=== PATIENT | female | born 1950 | race Caucasian/White ===

== ENCOUNTER → 2017-02-05 | Outpatient (CLI) | payer BC ==
--- NOTE | 2017-02-05 09:19 | MRI ---
Procedure: MR BRAIN WITHOUT IV CONTRAST Exam Date: 02/05/2017 8:16 AM CDT Ordering Provider: PATRIZIA ABEL Clinical Indication: HEADACHES Comparison: None Technique: Multiplanar MRI of the brain was obtained without the administration of IV contrast. Findings: Ventricular size and configuration are normal. There is no midline shift or hydrocephalus. There is normal signal within the cortical monreal matter, subcortical white matter, and periventricular white matter. There is normal signal within the deep monreal matter nuclei. There is normal signal within the cerebellum. There is normal signal within the brainstem There is no evidence of an acute infarct. There is no parenchymal hemorrhage. The pituitary gland is normal in size. There are no pineal masses. There are normal intracranial vascular flow voids. The foramen magnum is normal. There is normal signal within the paranasal sinuses. The orbits are intact. IMPRESSION: 1. Unremarkable MRI of the brain without the administration of IV contrast. Electronically signed by: Tamir San MD 02/05/2017 9:18 AM CDT
--- NOTE | 2017-02-05 09:19 | MRI ---
Study: MRA of the brain. Indication: Cerebral aneurysm Technique: Non contrast [id number] MRA images of the brain were obtained. 3D MIP reformats of the intracranial arterial vasculature performed. Comparison: None. Findings: No hemodynamically significant stenosis, branch occlusion, or aneurysm of the anterior or posterior intracranial arterial circulation identified. Impression: No MRA evidence of hemodynamically significant stenosis, branch occlusion, or aneurysm of the intracranial arterial circulation. Electronically signed by: Joshua Unger MD 02/05/2017 9:18 AM CDT
== END | disposition home or self-care (01) ==
LOC: MRI 07:58
PROVIDERS: ATTEND Specialist
DX: G44.52 New daily persistent headache (NDPH) (principal); I67.1 Cerebral aneurysm, nonruptured

== ENCOUNTER → 2017-02-18 | Outpatient (CLI) | payer BC ==
--- NOTE | 2017-02-18 10:19 | RAD ---
EXAM DESCRIPTION: Hand,Left 3 Views CLINICAL HISTORY: PAIN FINDINGS/ IMPRESSION: Osteoarthritis distal interphalangeal joint index finger with prominent osteophytes. Tiny distal interphalangeal joint osteophytes middle finger No advanced osteoarthritis. No inflammatory arthritis No fracture or focal osteochondral lesion Electronically signed by: Shabbir Padron MD 02/18/2017 10:18 AM CDT
--- NOTE | 2017-02-18 10:40 | RAD ---
EXAM DESCRIPTION: Hand,Right 3 Views CLINICAL HISTORY: 66 years,Female,PAIN COMPARISON: None FINDINGS: The right hand demonstrates no evidence of fractures or acute abnormalities. Soft tissues appear unremarkable. Joint space is unremarkable IMPRESSION: Unremarkable hand Electronically signed by: Subhash Suarez MD 02/18/2017 10:39 AM CDT
== END | disposition home or self-care (01) ==
LOC: RAD 09:05
PROVIDERS: ATTEND Orthopaedic Surgery
DX: M79.642 Pain in left hand (principal)

== ENCOUNTER → 2017-03-22 | Outpatient (CLI) | payer BC ==
--- NOTE | 2017-03-24 01:16 | MRI ---
Procedure: MR CERVICAL SPINE WITHOUT IV CONTRAST Exam Date: 03/22/2017 Ordering Provider: MIYA PA Clinical Indication: CERVICAL DISC DISORDER Comparison: None Technique: Multiplanar MRI of the cervical spine was obtained without the administration of intravenous contrast. Findings: Height of the intervertebral disks and vertebral bodies are preserved. There is no signal abnormality to suggest a fracture or metastatic disease. At the C1-2 level, there is no disc herniation, spinal stenosis, or neural foraminal narrowing. At the C2-3 level, there is no disc herniation, spinal stenosis, or neural foraminal narrowing. At the C3-4 level, disc osteophyte complex. No significant central spinal stenosis. There is mild right and no significant left neural foraminal narrowing. At the C4-5 level, there is no disc herniation, spinal stenosis, or neural foraminal narrowing. At the C5-6 level, tiny disc osteophyte complex without significant central spinal stenosis or neural foraminal narrowing. At the C6-7 level, there is no disc herniation, spinal stenosis, or neural foraminal narrowing. At the C7-T1 level, there is no disc herniation, spinal stenosis, or neural foraminal narrowing. The cervical and proximal thoracic spinal cord are of normal signal and contour. The prevertebral signal is normal. There is no paraspinal mass. Impression: 1. There is no significant central spinal stenosis in the cervical spine. 2. Mild multilevel degenerative disc disease. 3. Mild neural foraminal narrowing on the right at C3-C4. Electronically signed by: River Borrego MD 03/24/2017 1:15 AM CDT
== END | disposition home or self-care (01) ==
LOC: MRI 12:35
PROVIDERS: ATTEND Psychiatry & Neurology Neurology
DX: G56.01 Carpal tunnel syndrome, right upper limb (principal); G56.02 Carpal tunnel syndrome, left upper limb; M51.16 Intervertebral disc disorders with radiculopathy, lumbar region

== ENCOUNTER → 2017-04-15 | Outpatient (CLI) | payer BC | END | disposition home or self-care (01) | LOC: LAB.O 09:13 → EDSTATUS 13:30 | PROVIDERS: ATTEND Orthopaedic Surgery | DX: Z01.818 Encounter for other preprocedural examination (principal) ==

== ENCOUNTER 2017-04-30 05:53 | Day surgery (SDC) | payer BC ==
--- NOTE | 2017-04-29 13:21 | HP ---
CHIEF COMPLAINT: Right hand numbness. HISTORY OF PRESENT ILLNESS: Ms. Edwards has a history of numbness in the right hand that has been going on for quite sometime. She has attempted conservative measures. She has failed to gain relief with conservative measures and, as such , as requested operative intervention. Both her clinical and her EMG findings confirm carpal tunnel syndrome. Because of her ongoing failure, she would like to proceed with carpal tunnel release. PAST SURGICAL HISTORY: 1. Hysterectomy. 2. Cholecystectomy. MEDICATIONS: 1. Losartan. 2. Tramadol. 3. Zolpidem. 4. Magnesium. ALLERGIES: NO KNOWN DRUG ALLERGIES. CODE STATUS: DNR. IMMUNIZATIONS: Up to date. SOCIAL HISTORY: The patient does not drink, smoke or use any illicit drugs. FAMILY HISTORY: None pertinent to today's complaint. REVIEW OF SYSTEMS: Negative except as indicated in the History of Present Illness. PHYSICAL EXAMINATION: VITAL SIGNS: Blood pressure 137/86. Pulse 70. Height 5'4". Weight 220. MENTAL STATUS: The patient is awake, alert, and is able to give a good history and participate in the physical. The patient is oriented to person, place and time. SKIN: Normal tone and turgor. MUSCULOSKELETAL: She has positive Tinel's and positive Phalen's. She has very minor thenar atrophy. 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 She does have slight pain to palpation over the first carpometacarpal joint. She does have positive carpal compression test. The lacks any skin abnormalities. ASSESSMENT: 1. Carpal tunnel syndrome. PLAN: The plan at this point is for carpal tunnel release. We have discussed the risks, benefits, and alternatives to that and the patient has given informed consent. #[id number] [facility]
[~2017-04-30 05:53] MED LIST: LACTATED RINGERS 1,000 ML ONE; SODIUM CHL 0.9% 100ML MINI-BAG 100 ML IVPB ONE; SODIUM CHL 0.9% 50ML MIN-BAG+ 0 ML IVPB ONE; ceFAZolin SODIUM 1 GM VIAL ONE
[2017-04-30] MEDS ORDERED: VANCOMYCIN HCL INJ 1,000 MG VIAL IVPB ONE (07:06)
[2017-04-30] MEDS ORDERED: LIDOCAINE 1% 50 ML VIAL INJ ONE (07:06)
[2017-04-30] MEDS ORDERED: BUPIVACAINE 0.25% INJ 30 ML VIAL INJ ONE (07:06)
[2017-04-30 07:42] VITALS: O2SAT 95
[2017-04-30] MEDS ORDERED: MIDAZOLAM INJ 5 MG/5 ML VIAL ONE (10:16)
[2017-04-30] MEDS ORDERED: fentaNYL CITRATE INJ 50 MCG/ML AMP ONE (10:16)
[2017-04-30] MEDS: ceFAZolin SODIUM 1 GM VIAL ONE ×2 (10:41→10:45)
[2017-04-30] MEDS: VANCOMYCIN HCL INJ 1,000 MG VIAL IVPB ONE ×2 (10:41→10:45)
[2017-04-30] MEDS ORDERED: HYDROcodone 5MG/APAP 325MG 1 EA TAB ONE (11:13)
[2017-04-30] MEDS ORDERED: HYDROcodone 5MG/APAP 325MG 1 EA TAB PO ONE (11:20)
[2017-04-30] MEDS ORDERED: LIDOCAINE 1% 10 ML VIAL INJ ONE (12:00)
[2017-04-30] MEDS ORDERED: PROPOFOL 200 MG/20 ML VIAL IV ONE (12:00)
[2017-04-30 13:43] VITALS: BP 118/61; TEMP 97.8
--- NOTE | 2017-05-01 08:13 | OP ---
DATE OF PROCEDURE: 04/30/17 PREOPERATIVE DIAGNOSIS: 1. Carpal tunnel syndrome. POSTOPERATIVE DIAGNOSIS: 1. Carpal tunnel syndrome. PROCEDURE: 1. Carpal tunnel release. SURGEON: Jatin Marcum MD. NATURALIST: Claudy Alonso CST, SA-C. ANESTHESIA: Local with sedation. COMPLICATIONS: None. FINDINGS: Thickening of the transverse carpal ligament. INDICATION: The patient has a history of both pain and numbness in the distribution of the median nerve. We talked about options for her and she has failed conservative measures. As such, she has requested operative intervention. After discussing the risks, benefits and alternatives to that, the patient has given informed consent for carpal tunnel release. PROCEDURE: The patient was brought to the Operating Room and placed in the supine position. Sedation was administered and local anesthetic was injected into the operative area under sterile conditions. After the injection of anesthetic, the arm was sterilely prepped and draped. A longitudinal incision was made directly overlying the transverse carpal ligament and blunt dissection was carried down to the ligament. The transverse carpal ligament was sharply transected along its length and a [place] elevator was used to ensure complete release of the ligament. Once release had been confirmed, the wound was thoroughly irrigated and the wound was closed with Nylon suture. A sterile dressing was placed and the patient was taken to the Day Surgery Unit. POSTOPERATIVE INSTRUCTIONS: The patient has been encouraged to do range of motion of the digits and will followup with us in two days. #[id number] [facility]
== END 2017-04-30 11:45 | disposition home or self-care (01) ==
LOC: AMB 05:53
PROVIDERS: ATTEND Orthopaedic Surgery
DX: G56.01 Carpal tunnel syndrome, right upper limb (principal); Z79.899 Other long term (current) drug therapy
CPT/HCPCS: 01810; 64721; J0690; J2250; J3010; J3370; J3490; J7050; J7120

== ENCOUNTER → 2017-05-13 | Outpatient (CLI) | payer BC ==
--- NOTE | 2017-05-13 21:10 | MRI ---
EXAM DESCRIPTION: Lumbar Spine w/o Contrast CLINICAL HISTORY: 66 years, Female, LOW BACK PAIN left foot numbness COMPARISON: None. FINDINGS: Sagittal and axial sequences. Bone marrow has normal signal characteristics. Conus terminates at L1. L1 has chronic anterior compression deformity. Anterior height here about 1.4 cm versus about 2.6 cm comparable area of L2. Minimal bulge T12-L1. At L1-2, mild bulging disc and facet degenerative change. At L2-3, mild diffuse bulge with facet degenerative change. Slight left foraminal narrowing Mild bulging disc L3-4. Asymmetric to the right. Right foraminal narrowing and impingement on the exiting right L3 root. Mild facet degenerative change. At L4-5 about 2 mm of retrolisthesis with bulging disc osteophyte asymmetric to the right. Narrowing of the right exit foramen and right lateral recess with facet degenerative change. At L5-S1 bulging disc asymmetric to left. Slight impingement on the left lateral recess and exit foramen. IMPRESSION: 1. Mild retrolisthesis L4-5. Bulging disc osteophyte impingement right exit foramen and lateral recess 2. Bulging disc asymmetric to the right with facet degenerative change. Slight impingement on the exiting right L3 root 3. Mild bulging disc osteophyte asymmetric to left L5-S1. Other mild degenerative changes as discussed. 4. Chronic mild anterior compression L1. Consider bone mineral density test to evaluate for osteopenia if clinically indicated Electronically signed by: Lance Gamez MD 05/13/2017 9:09 PM CDT
== END | disposition home or self-care (01) ==
LOC: MRI 13:42
PROVIDERS: ATTEND Family Medicine
DX: M54.5 Low back pain (principal); M47.896 Other spondylosis, lumbar region

== ENCOUNTER → 2017-07-05 | Outpatient (CLI) | payer BC | END | disposition home or self-care (01) | LOC: LAB.O 08:30 | PROVIDERS: ATTEND Orthopaedic Surgery | DX: Z01.818 Encounter for other preprocedural examination (principal) ==

== ENCOUNTER 2017-07-17 05:41 | Day surgery (SDC) | payer BC ==
--- NOTE | 2017-07-11 08:43 | HP ---
CHIEF COMPLAINT: Left hand numbness. HISTORY OF PRESENT ILLNESS: Anali is a 66-year-old female with a history of numbness in both hands. She has had right carpal tunnel release which has resolved that pain. She now has pain in the left wrist and left hand numbness. She does have signs, symptoms and testing consistent with carpal tunnel syndrome. Because of that, she has requested operative intervention. After discussing the risks, benefits and alternatives to carpal tunnel release, the patient has given informed consent. PAST SURGICAL HISTORY: 1. Hysterectomy. 2. Cholecystectomy. 3. Carpal tunnel release. MEDICATIONS: 1. Losartan. 2. Tramadol. 3. Zolpidem. 4. Magnesium. ALLERGIES: NO KNOWN DRUG ALLERGIES. CODE STATUS: DNR. IMMUNIZATIONS: Up to date. SOCIAL HISTORY: The patient does not drink, smoke or use any illicit drugs. FAMILY HISTORY: None pertinent to today's complaint. REVIEW OF SYSTEMS: Negative except as indicated in the History of Present Illness. PHYSICAL EXAMINATION: VITAL SIGNS: Blood pressure 135/89. Pulse 75. Height 5'4". Weight 209. MENTAL STATUS: The patient is awake, alert, and is able to give a good history and participate in the physical. The patient is oriented to person, place and time. SKIN: Normal tone and turgor. MUSCULOSKELETAL: She has positive carpal compression test and she is tender to palpation of the wrist. She has positive Tinel's and positive Phalen's. The hand is warm and well perfused. 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 ASSESSMENT: 1. Carpal tunnel syndrome. PLAN: The plan at this point is for carpal tunnel release. We have discussed the risks, benefits, and alternatives to that and the patient has given informed consent. #[id number] [facility]
[2017-07-17] MEDS ORDERED: VANCOMYCIN HCL INJ 1,000 MG VIAL IVPB ONE (07:52)
[2017-07-17] MEDS ORDERED: BUPIVACAINE 0.25% INJ 30 ML VIAL INJ ONE (07:52)
[2017-07-17] MEDS ORDERED: ceFAZolin SODIUM 1 GM VIAL ONE ×2 (07:52→11:03)
[2017-07-17] MEDS ORDERED: LIDOCAINE 1% 50 ML VIAL INJ ONE (07:52)
[2017-07-17] MEDS ORDERED: SODIUM CHL 0.9% 100ML MINI-BAG 100 ML IVPB ONE (11:02)
[2017-07-17] MEDS: LACTATED RINGERS 1,000 ML ONE ×2 (11:25→11:30)
[2017-07-17] MEDS ORDERED: PROPOFOL 200 MG/20 ML VIAL IV ONE (12:00)
[2017-07-17] MEDS ORDERED: LIDOCAINE 1% 10 ML VIAL INJ ONE (12:00)
[2017-07-17] MEDS ORDERED: MIDAZOLAM INJ 5 MG/5 ML VIAL ONE (12:12)
[2017-07-17] MEDS ORDERED: fentaNYL CITRATE INJ 50 MCG/ML AMP ONE (12:12)
[2017-07-17 13:48] VITALS: O2SAT 96
[2017-07-17 13:49] VITALS: BP 111/76; TEMP 97.1
--- NOTE | 2017-07-18 08:41 | OP ---
DATE OF PROCEDURE: 07/17/17 PREOPERATIVE DIAGNOSIS: 1. Carpal tunnel syndrome. POSTOPERATIVE DIAGNOSIS: 1. Carpal tunnel syndrome. PROCEDURE: 1. Carpal tunnel release. SURGEON: Jatin Marcum MD. GOLF INSTRUCTOR: Claudy Alonso CST, SA-C. ANESTHESIA: Local with sedation. COMPLICATIONS: None. FINDINGS: Narrowing of the median nerve across the transverse carpal ligament. INDICATION: The patient has a history of carpal tunnel syndrome bilaterally. She has had pain associated with her symptoms. She has tried conservative measures, however, has failed to gain relief. After discussing the risks, benefits and alternatives to operative therapy, the patient has given informed consent for carpal tunnel release. PROCEDURE: The patient was brought to the Operating Room and placed in the supine position. Sedation was administered and local anesthetic was injected into the operative area under sterile conditions. After the injection of anesthetic, the arm was sterilely prepped and draped. A longitudinal incision was made directly overlying the transverse carpal ligament and blunt dissection was carried down to the ligament. The transverse carpal ligament was sharply transected along its length and a [place] elevator was used to ensure complete release of the ligament. Once release had been confirmed, the wound was thoroughly irrigated and the wound was closed with Nylon suture. A sterile dressing was placed and the patient was taken to the Day Surgery Unit. POSTOPERATIVE INSTRUCTIONS: The patient has been encouraged to do range of motion of the digits and will followup with us in two days. #[id number] [facility]
== END 2017-07-17 13:45 | disposition home or self-care (01) ==
LOC: AMB 05:41
PROVIDERS: ATTEND Orthopaedic Surgery
DX: G56.02 Carpal tunnel syndrome, left upper limb (principal); I10 Essential (primary) hypertension; E66.9 Obesity, unspecified; Z79.899 Other long term (current) drug therapy
CPT/HCPCS: 01810; 64721; J0690; J2250; J3010; J3370; J3490; J7050; J7120

== ENCOUNTER → 2018-09-23 | Outpatient (CLI) | payer MEDICARE | LOC: GMAE 10:41 | PROVIDERS: ATTEND Family Medicine | DX: I10 Essential (primary) hypertension (principal) ==

== ENCOUNTER → 2018-12-09 | Outpatient (CLI) | payer MEDICARE | LOC: GMAE 14:25 | PROVIDERS: ATTEND Family Medicine | DX: E03.9 Hypothyroidism, unspecified (principal); E55.9 Vitamin D deficiency, unspecified ==

== ENCOUNTER → 2019-09-29 | Outpatient (CLI) | payer MEDICARE, OTHER | LOC: GMAE 10:57 | PROVIDERS: ATTEND Family Medicine | DX: E03.9 Hypothyroidism, unspecified (principal); I10 Essential (primary) hypertension ==

== ENCOUNTER → 2020-07-06 | Outpatient (CLI) | payer MEDICARE, OTHER ==
--- NOTE | 2020-07-07 09:42 | CT ---
EXAM DESCRIPTION: Chest w/o Contrast CLINICAL HISTORY: MYASTHENIA GRAVIS WITHOUT ACUTE EXACERBATION COMPARISON: June 24, 2009 TECHNIQUE: Chest CT was performed without IV contrast. This exam was performed according to our departmental dose-optimization program, which includes automated exposure control, adjustment of the mA and/or kV according to patient size and/or use of iterative reconstruction technique. FINDINGS: The thyroid and thoracic inlet are unremarkable. No thymoma or other anterior mediastinal mass. No thoracic aortic aneurysm. No pleural or pericardial effusion. Limited sensitivity for detection of adenopathy due to lack of IV contrast, no mediastinal or hilar adenopathy is seen. No esophageal wall thickening. Small hiatal hernia. The central airways are clear. No airspace consolidation or lung mass. The gallbladder is surgically absent. Visualized portions of the upper abdomen are otherwise unremarkable for noncontrast technique. Mild multilevel degenerative changes in the thoracic spine. No fracture or pneumothorax. 9 mm nodular lesion medially in the left breast, stable from May, and requiring no further follow-up. No axillary adenopathy. IMPRESSION: Negative exam. No thymoma or other abnormality to explain provided history of myasthenia gravis. Small hiatal hernia. Electronically signed by: Robert Cheung MD 07/07/2020 9:40 AM CDT
== END ==
LOC: CT 13:30
PROVIDERS: ATTEND Psychiatry & Neurology Neurology
DX: G70.00 Myasthenia gravis without (acute) exacerbation (principal); K44.9 Diaphragmatic hernia without obstruction or gangrene

== ENCOUNTER → 2020-11-08 | Outpatient (CLI) | payer MEDICARE, OTHER ==
--- NOTE | 2020-11-09 10:13 | MRI ---
EXAM DESCRIPTION: Cervical Spine: MRI. CLINICAL HISTORY: 70 years Female CERVICAL DISC DISORDER COMPARISON: MRI scan cervical spine without contrast February 2017. TECHNIQUE: Multiplanar, high-field MRI, multiple sequences, non-contrast Cervical spine. FINDINGS: C3-C4 disc space loss with posterior bulge in the midline abutting the ventral cord. Small right uncinate spur. Mild right neural foraminal narrowing. Neuroforamen patent. Bilateral facet joints are unremarkable. C4-C5: Minimal desiccation and anterior bulging. Small bilateral uncinate spurs. Mild arthrosis bilateral facet joints. Mild bilateral neural foraminal narrowing. Canal is patent. C5-C6: Disc desiccation and minimal disc space loss. Minimal posterior bulging and grade 1 retrolisthesis. Bilateral uncinate spurs. Bilateral facet joints are intact. Mild canal and mild neural foraminal narrowing. C6-C7: Minimal signal in disc with posterior midline tiny bulge. Disc spaces preserved. Facet joints are unremarkable. Canal and neural foramina are patent. Normal signal in the C2-C3 disc, C7-T1 disc, and T1-T2 disc with no bulging. Disc spaces preserved. Canal and neural foramina are patent. Facet joints maintained. Perineural cyst in the right T1-T2 neural foramen. Spinal alignment anatomic. No cord compression or cord edema. Atlantoaxial joint physiologic. Base of the cerebellar tonsils is at the level of the foramen magnum. Paravertebral soft tissues are unremarkable. Vertebral bodies are not compressed at any level. Otherwise normal marrow signal in the remaining vertebral bodies and the posterior elements. IMPRESSION: 1. Small right uncinate spur at C3-C4 with mild right neural foraminal narrowing. Posterior disc bulge. No nerve impingement. Stable since the prior study. 2. Bilateral neural foraminal narrowing at C4-C5 with bilateral uncinate spurs and mild arthrosis of the bilateral facet joints. This has progressed since the prior study. 3. Please refer to FINDINGS for discussion of results at specifically disc space levels. Electronically signed by: Claudy Gallardo MD 11/09/2020 10:12 AM [facility]
== END ==
LOC: MRI 10:45
PROVIDERS: ATTEND Psychiatry & Neurology Neurology
DX: M50.122 Cervical disc disorder at C5-C6 level with radiculopathy (principal); M50.11 Cervical disc disorder with radiculopathy, high cervical region; M47.22 Other spondylosis with radiculopathy, cervical region; M25.78 Osteophyte, vertebrae; M51.16 Intervertebral disc disorders with radiculopathy, lumbar region; G96.191 Perineural cyst

== ENCOUNTER → 2020-11-09 | Outpatient (CLI) | payer MEDICARE, OTHER ==
--- NOTE | 2020-11-10 14:50 | MRI ---
EXAM DESCRIPTION: Lumbar Spine w/o Contrast : Magnetic Resonance Imaging. CLINICAL HISTORY: RADICULOPATHY COMPARISON: MRI scan lumbar spine without contrast April 2017. TECHNIQUE: Multiplanar, multiple standard sequences, non contrast MRI, lumbar spine. FINDINGS: L5-S1: The disc is well visualized on axial T2 series 501, image 3. Disc desiccation and disc space loss. Hyperintense T2 weighted annular fissure posterior midline disc. Minimal hypertrophy of the posterior flavum ligaments and the bilateral facet joints (canal elements), left more than right. Mild canal narrowing. Left side moderate endplate reactive changes with disc spur complex encroaching on the left foramen and abutting the left L5 nerve. No change from the prior study. Mild right foraminal narrowing. L4-L5: Disc desiccation minimal disc space loss. Anterior bulging. Left paracentral 4 x 14 mm disc protrusion encroaching on the left subarticular recess and the descending left L5 nerve. Minimal hypertrophic changes in the canal elements. AP canal diameter 11 mm. Disc space narrowing to the right with moderate endplate reactive changes. Disc spur complex encroaching on the right foramen and the right L4 nerve. Moderate narrowing of the left foramen. Stable since the prior study. L3-L4: Disc desiccation and minimal disc space loss. Hypertrophic changes in the canal elements. Impressing on the thecal sac with AP canal diameter 13 mm. Mild to moderate narrowing the foramen and mild narrowing right foramen. Stable from the prior study. Circumscribed hyperintense T1 and T2 hemangioma in the L3 vertebral body no interval change. L2-L3: Minimal disc desiccation and disc space loss. Anterior bulging and endplate ridging. Trace retrolisthesis. Tiny posterior bulge. Hypertrophic changes in the canal elements impressing on the thecal sac. AP canal diameter 12 mm. Moderate bilateral foraminal narrowing. Stable since the prior study. L1-L2: Disc desiccation and anterior bulging and endplate ridging. Minimal posterior bulge. Hypertrophic changes in the canal elements. Impressing on the thecal sac. AP canal diameter 13 mm. Bilateral mild foraminal narrowing. Circumscribed hyperintense T1 and T2 hemangioma posterior vertebral body. No interval change. T12-L1: Depression of the anterior L1 superior endplate is stable with no marrow edema. Disc desiccation with minimal anterior and posterior bulging. Minimal hypertrophy and the canal elements impressing on the thecal sac. Mild canal narrowing. Conus terminates at this level. Bilateral foramina are patent. Stable since the prior study. Mild lumbosacral levoscoliosis. Paravertebral soft tissues fatty atrophy. Minimal tortuosity of the aorta.. Distal cord normal signal and caliber. Normal marrow signal in the remaining vertebral bodies and the posterior elements. Vertebral bodies are not compressed at any level. IMPRESSION: 1. Multiple levels of disc desiccation, hypertrophic changes in the flavum ligaments and posterior facet joints, and spondylosis. 2. Chronic left paracentral protrusion of the L4-L5 disc encroaching on the the subarticular recess and the descending left L5 nerve. Right sided spondylosis and disc spur complex encroaching on the right foramen and the right L4 nerve. Stable since the prior study. 3. Chronic spondylosis on the left that L5-S1 with disc spur complex encroaching on the left foramen and the left L5 nerve. No interval change. 4. Please refer to FINDINGS for discussion of results at specific disc space levels. Electronically signed by: Claudy Gallardo MD 11/10/2020 2:49 PM [facility]
== END ==
LOC: MRI 10:46
PROVIDERS: ATTEND Psychiatry & Neurology Neurology
DX: M51.16 Intervertebral disc disorders with radiculopathy, lumbar region (principal); M47.26 Other spondylosis with radiculopathy, lumbar region; M47.27 Other spondylosis with radiculopathy, lumbosacral region; M50.122 Cervical disc disorder at C5-C6 level with radiculopathy; M24.28 Disorder of ligament, vertebrae; M25.78 Osteophyte, vertebrae; M46.96 Unspecified inflammatory spondylopathy, lumbar region

== ENCOUNTER → 2020-11-23 | Outpatient (CLI) | payer MEDICARE, OTHER | LOC: GMAE 10:54 | PROVIDERS: ATTEND Family Medicine | DX: D50.9 Iron deficiency anemia, unspecified (principal); Z79.899 Other long term (current) drug therapy; E03.9 Hypothyroidism, unspecified; E55.9 Vitamin D deficiency, unspecified; I10 Essential (primary) hypertension ==